=== PATIENT | female | born 1985 | race American Indian/Alaskan Native ===

== ENCOUNTER 2017-07-09 20:48 | Emergency (ER) | payer OTHER ==
[2017-07-09 21:14] VITALS: BP 128/79
--- NOTE | 2017-07-09 21:29 | EDM.PDOC ---
ED HPI GENERAL MEDICAL PROBLEM - General Chief Complaint: Abdominal Pain Stated Complaint: ABDOMINAL PAIN [id number] Time Seen by Provider: 07/09/17 21:30 Source of Information: Reports: Patient History Limitations: Reports: No Limitations - History of Present Illness INITIAL COMMENTS - FREE TEXT/NARRATIVE: ED with c/o mid abdominal pain, started afternoon, worse tonight, Does not radiate. Was told her elevated liver enzymes on recheck were continuing to rise and she would need to get scheduled for ultrasound to check gallbladder. 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: Psychiatric History: Reports: Anxiety Endocrine/Metabolic History: Reports: Obesity/BMI 30+ - Past Surgical History Female Surgical History: Reports: Dilitation & Evacuation Social & Family History - Family History Family Medical History: Noncontributory - Tobacco Use Smoking Status *Q: Never Smoker Second Hand Smoke Exposure: No - Caffeine Use Caffeine Use: Reports: None - Alcohol Use Days Per Week of Alcohol Use: 0 - Recreational Drug Use Recreational Drug Use: No ED ROS GENERAL - Review of Systems Review Of Systems: See Below Constitutional: Reports: No Symptoms HEENT: Reports: No Symptoms Respiratory: Reports: No Symptoms Cardiovascular: Reports: No Symptoms Endocrine: Reports: No Symptoms GI/Abdominal: Reports: Abdominal Pain, Diarrhea, Nausea. Denies: Vomiting Musculoskeletal: Reports: No Symptoms Skin: Reports: No Symptoms Neurological: Reports: No Symptoms ED EXAM, GI/ABD - Physical Exam Exam: See Below Exam Limited By: No Limitations General Appearance: Alert, Mild Distress Eyes: Bilateral: EOMI Ears: Normal External Exam, Normal TMs Nose: Normal Inspection Throat/Mouth: Normal Inspection, Normal Lips Head: Atraumatic, Normocephalic Neck: Normal Inspection, Full Range of Motion Respiratory/Chest: No Respiratory Distress, Lungs Clear, Normal Breath Sounds Cardiovascular: Normal Peripheral Pulses, Regular Rate, Rhythm GI/Abdominal Exam: Soft, Tender (mild tendernes above umbilicus with deep palpation), Abnormal Bowel Sounds (hypoactive). No: Distended, Guarding, Rebound Back Exam: Normal Inspection Extremities: Normal Inspection Neurological: Alert, Oriented, Normal Cognition Skin Exam: Warm, Dry, Intact, Normal Color Course - Vital Signs Last Recorded V/S: Last Vital Signs Temp 98 F 07/09/17 21:06 Pulse 95 07/09/17 21:06 Resp 17 07/09/17 21:06 BP 128/79 07/09/17 21:06 Pulse Ox 100 07/09/17 21:06 - Orders/Labs/Meds Labs: Laboratory Tests 07/09/17 07/09/17 07/09/17 Range/Units 21:40 21:40 21:52 WBC 12.9 H (5.0-10.0) 10^3/uL RBC 4.48 (4.2-5.4) 10^6/uL Hgb 13.3 D (12.0-16.0) g/dL Hct 39.8 (37.0-47.0) % MCV 88.8 D (80-100) fL MCH 29.7 (27.0-34.0) pg MCHC 33.4 (33.0-35.0) g/dL Plt Count 240 (150-450) 10^3/uL Neut % (Auto) 65.6 (42.2-75.2) % Lymph % (Auto) 24.5 (20.5-50.1) % [place] % (Auto) 7.4 (2-8) % Eos % (Auto) 2.3 (1.0-3.0) % Baso % (Auto) 0.2 (0.0-1.0) % Sodium 136 (135-145) mmol/L Potassium 3.5 L (3.6-5.0) mmol/L Chloride 105 (101-111) mmol/L Carbon Dioxide 21.0 (21.0-31.0) mmol/L Anion Gap 13.5 BUN 16 (7-18) mg/dL Creatinine 0.8 (0.6-1.3) mg/dL Est Cr Clr Drug Dosing 77.59 mL/min Estimated GFR (MDRD) > 60 BUN/Creatinine Ratio 20.00 Glucose 95 (74-105) mg/dL Calcium 9.2 (8.4-10.2) mg/dl Total Bilirubin 0.8 (0.2-1.0) mg/dL AST 28 (10-42) IU/L ALT 57 (10-60) IU/L Alkaline Phosphatase 96 (42-121) IU/L Total Protein 7.7 (6.7-8.2) g/dl Albumin 4.2 (3.2-5.5) g/dl Globulin 3.5 Albumin/Globulin Ratio 1.20 Amylase 33 (28-100) U/L Lipase 34 (22-51) U/L Urine Color (YELLOW) Urine Appearance (CLEAR) Urine pH (5.0-9.0) Ur Specific [place] (1.005-1.030) Urine Protein (NEGATIVE) Urine Glucose (UA) (NEGATIVE) Urine Ketones (NEGATIVE) Urine Occult Blood (NEGATIVE) Urine Nitrite (NEGATIVE) Urine Bilirubin (NEGATIVE) Urine Urobilinogen (0.2-1.0) mg/dL Ur Leukocyte Esterase (NEGATIVE) Urine RBC /HPF Urine WBC (0-5/HPF) /HPF Ur Epithelial Cells /HPF Urine Bacteria (0-FEW/HPF) /HPF Urine Mucus /LPF Urine Yeast (0/HPF) /HPF Urine HCG, Qual Negative 07/09/17 Range/Units 21:52 WBC (5.0-10.0) 10^3/uL RBC (4.2-5.4) 10^6/uL Hgb (12.0-16.0) g/dL Hct (37.0-47.0) % MCV (80-100) fL MCH (27.0-34.0) pg MCHC (33.0-35.0) g/dL Plt Count (150-450) 10^3/uL Neut % (Auto) (42.2-75.2) % Lymph % (Auto) (20.5-50.1) % [place] % (Auto) (2-8) % Eos % (Auto) (1.0-3.0) % Baso % (Auto) (0.0-1.0) % Sodium (135-145) mmol/L Potassium (3.6-5.0) mmol/L Chloride (101-111) mmol/L Carbon Dioxide (21.0-31.0) mmol/L Anion Gap BUN (7-18) mg/dL Creatinine (0.6-1.3) mg/dL Est Cr Clr Drug Dosing mL/min Estimated GFR (MDRD) BUN/Creatinine Ratio Glucose (74-105) mg/dL Calcium (8.4-10.2) mg/dl Total Bilirubin (0.2-1.0) mg/dL AST (10-42) IU/L ALT (10-60) IU/L Alkaline Phosphatase (42-121) IU/L Total Protein (6.7-8.2) g/dl Albumin (3.2-5.5) g/dl Globulin Albumin/Globulin Ratio Amylase (28-100) U/L Lipase (22-51) U/L Urine Color Yellow (YELLOW) Urine Appearance Clear (CLEAR) Urine pH 5.5 (5.0-9.0) Ur Specific [place] >= 1.030 (1.005-1.030) Urine Protein Negative (NEGATIVE) Urine Glucose (UA) Negative (NEGATIVE) Urine Ketones Negative (NEGATIVE) Urine Occult Blood Negative (NEGATIVE) Urine Nitrite Negative (NEGATIVE) Urine Bilirubin Negative (NEGATIVE) Urine Urobilinogen 0.2 (0.2-1.0) mg/dL Ur Leukocyte Esterase Negative (NEGATIVE) Urine RBC 0-5 /HPF Urine WBC 0-5 (0-5/HPF) /HPF Ur Epithelial Cells Many H /HPF Urine Bacteria Many H (0-FEW/HPF) /HPF Urine Mucus Moderate H /LPF Urine Yeast Few H (0/HPF) /HPF Urine HCG, Qual Meds: Medications Discontinued Medications Generic Name Dose Route Start Last Admin Trade Name Freq PRN Reason Stop Dose Admin Al Hydroxide/Mg Hydroxide 30 ml 07/09/17 23:02 07/09/17 23:25 Gi Cocktail PO 07/09/17 23:03 30 ml ONETIME ONE Administration Famotidine 20 mg 07/09/17 23:21 07/10/17 00:37 Pepcid IVPUSH 07/09/17 23:22 20 mg ONETIME ONE Administration Famotidine Confirm 07/09/17 23:20 07/09/17 23:25 Pepcid Administered 07/09/17 23:21 Not Given Dose 20 mg .ROUTE .STK-MED ONE Hydromorphone HCl 0.5 mg 07/09/17 23:53 07/10/17 00:36 Dilaudid IVPUSH 07/09/17 23:54 0.5 mg ONETIME ONE Administration Hydromorphone HCl Confirm 07/10/17 00:13 07/10/17 00:36 Dilaudid Administered 07/10/17 00:14 Not Given Dose 1 mg .ROUTE .STK-MED ONE Sodium Chloride 1,000 mls @ 999 mls/hr 07/09/17 22:07 07/09/17 23:20 Normal Saline IV 07/09/17 23:07 999 mls/hr .BOLUS ONE Administration Iopamidol 100 ml 07/09/17 22:06 07/09/17 22:09 Isovue-300 (61%) IVPUSH 07/09/17 22:07 100 ml ONETIME ONE Administration Ondansetron HCl 4 mg 07/09/17 23:54 07/10/17 00:21 Zofran IV 07/09/17 23:55 4 mg ONETIME ONE Administration - Radiology Interpretation Free Text/Narrative:: CT abdomen: Mild fatty liver replacement\ Departure - Departure Time of Disposition: 23:03 Disposition: Home, Self-Care 01 Condition: Good Clinical Impression: Abdominal pain Qualifiers: Abdominal location: epigastric Qualified Code(s): R10.13 - Epigastric pain - Discharge Information Instructions: Abdominal Pain, Adult, [id number] Forms: ED Department Discharge Additional Instructions: light bland diet low acid, no caffeine, no alcohol low fat omeprazole 20mg daily on empty stomach Clinic follow up next week.
[2017-07-09] MEDS ORDERED: Iopamidol 612 MG/ML 100 ML Bottle IVPUSH ONE (22:06)
[2017-07-09] MEDS ORDERED: Sodium Chloride 0.9% 1,000 ML IV ONE (22:07)
[2017-07-09 22:11] LABS: CHLORIDE,CL 105 mmol/L (101-111); SODIUM,NA 136 mmol/L (135-145)
[2017-07-09] MEDS ORDERED: GI Cocktail Oral Solution 30 ML PO ONE (23:02)
[2017-07-09] MEDS ORDERED: Famotidine 20 MG/2 ML SDV ONE (23:20)
[2017-07-09] MEDS: Famotidine 20 MG/2 ML SDV IVPUSH ONE (23:25)
[2017-07-09] MEDS ORDERED: HYDROmorphone 0.5 MG/0.5 ML Syringe IVPUSH ONE (23:53)
[2017-07-09] MEDS ORDERED: Ondansetron 4 MG/2 ML SDV IV ONE (23:54)
[2017-07-10] MEDS ORDERED: HYDROmorphone 1 MG/ML Syringe ONE (00:13)
[2017-07-10] MEDS: Famotidine 20 MG/2 ML SDV IVPUSH ONE (00:37)
== END 2017-07-10 01:08 | disposition home or self-care (01) ==
LOC: DL.ED 20:48
DX: R10.13 Epigastric pain (principal)
CPT/HCPCS: 36415; 74177; 80053; 81001; 81025; 82150; 83690; 85025; 96361; 96374; 96375; 99284; A9270-GY; J1170; J2405; J7030; Q9967; S0028

== ENCOUNTER 2018-08-05 17:25 | Emergency (ER) | payer OTHER ==
[2018-08-05 17:33] VITALS: BP 135/68
--- NOTE | 2018-08-05 18:22 | EDM.PDOC ---
ED HPI GENERAL MEDICAL PROBLEM - General Chief Complaint: ENT Problem Stated Complaint: SINUS INFECTION? Time Seen by Provider: 08/05/18 18:12 Source of Information: Reports: Patient, RN, RN Notes Reviewed History Limitations: Reports: No Limitations - History of Present Illness INITIAL COMMENTS - FREE TEXT/NARRATIVE: Patient presents to ER with complaint of sinus infection. States she has had cough, PND, headache, runny nose, eyes draining and tickle in chest. She has had fever, chills, and shortness of breath at times. She has had no nausea, vomiting, diarrhea or chest pain. Onset: Gradual Duration: Constant Location: Reports: Generalized Quality: Reports: Ache Severity: Moderate Improves with: Reports: None Worsens with: Reports: None Associated Symptoms: Reports: No Other Symptoms - Related Data Allergies Allergy/AdvReac Type Severity Reaction Status Date / Time No Known Allergies Allergy Verified 08/05/18 17:28 Home Meds: Home Meds Pnv95/Iron Fum/Folic Acid [ Caplet] 1 tab PO DAILY 07/02/16 [History] Past Medical History - Past Health History Medical/Surgical History: Denies Medical/Surgical History HEENT History: Reports: Impaired Vision Cardiovascular History: Reports: None Respiratory History: Reports: None Gastrointestinal History: Reports: None Genitourinary History: Reports: None 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: Musculoskeletal History: Reports: None Neurological History: Reports: None Psychiatric History: Reports: Anxiety Endocrine/Metabolic History: Reports: Obesity/BMI 30+ Hematologic History: Reports: None Immunologic History: Reports: None Oncologic (Cancer) History: Reports: None Dermatologic History: Reports: None - Infectious Disease History Infectious Disease History: Reports: None - Past Surgical History Head Surgeries/Procedures: Reports: None Female Surgical History: Reports: Dilitation & Evacuation Social & Family History - Family History Family Medical History: Noncontributory - Tobacco Use Smoking Status *Q: Never Smoker - Caffeine Use Caffeine Use: Reports: Soda - Recreational Drug Use Recreational Drug Use: No ED ROS ENT - Review of Systems Review Of Systems: ROS reveals no pertinent complaints other than HPI. ED EXAM, ENT - Physical Exam Exam: See Below Exam Limited By: No Limitations General Appearance: Alert, WD/WN, No Apparent Distress Eye Exam: Bilateral Eye: EOMI, Normal Inspection, PERRL Ears: Normal External Exam, Normal Canal, Hearing Grossly Normal, Normal TMs Nose: Other (nasal/sinus congestion) Mouth/Throat: Normal Inspection, Normal Gums, Normal Lips, Normal Oropharynx, Normal Teeth Head: Atraumatic, Normocephalic Neck: Normal Inspection, Supple, Non-Tender, Full Range of Motion Respiratory/Chest: No Respiratory Distress, Lungs Clear, Normal Breath Sounds, No Accessory Muscle Use, Chest Non-Tender Cardiovascular: Normal Peripheral Pulses, Regular Rate, Rhythm, No Edema, No Gallop, No JVD, No Murmur, No Rub GI/Abdominal: Normal Bowel Sounds, Soft, Non-Tender, No Organomegaly, No Distention, No Abnormal Bruit, No Mass (Female) Exam: Deferred Rectal (Female) Exam: Deferred Back: Normal Inspection, Full Range of Motion Extremities: Normal Inspection, Normal Range of Motion, Non-Tender, No Pedal Edema, Normal Capillary Refill Neurological: Alert, Oriented, CN II-XII Intact, Normal Cognition, Normal Gait, Normal Reflexes, No Motor/Sensory Deficits Psychiatric: Normal Affect, Normal Mood Skin: Warm, Dry, Intact, Normal Color, No Rash Lymphatic: No Adenopathy Course - Vital Signs Last Recorded V/S: Last Vital Signs Temp 97.1 F 08/05/18 17:32 Pulse 95 08/05/18 17:32 Resp 16 08/05/18 17:32 BP 135/68 08/05/18 17:32 Pulse Ox 99 08/05/18 17:32 Departure - Departure Time of Disposition: 18:20 Disposition: Home, Self-Care 01 Condition: Fair Clinical Impression: Viral upper respiratory infection - Discharge Information *PRESCRIPTION DRUG MONITORING PROGRAM REVIEWED*: No *COPY OF PRESCRIPTION DRUG MONITORING REPORT IN PATIENT THELMA: No Instructions: Cool Mist Vaporizer, Viral Respiratory Infection, [id number], Upper Respiratory Infection, Adult, [id number] Forms: ED Department Discharge Additional Instructions: Try using nasal rinses RX: Flonase and Albuterol inhaler Drink plenty of fluids Continue to use a decongestant May use Tylenol and/or Ibuprofen as directed for pain/fever Follow up with your primary care facility if no improvement
== END 2018-08-05 18:25 | disposition home or self-care (01) ==
LOC: DL.ED 17:25
DX: J06.9 Acute upper respiratory infection, unspecified (principal)
CPT/HCPCS: 99282

== ENCOUNTER 2018-10-09 12:28 | Emergency (ER) | payer OTHER ==
[2018-10-09] MEDS ORDERED: Sodium Chloride 0.9% 10 ML Syringe FLUSH PRN (12:42)
[2018-10-09] MEDS ORDERED: diazePAM 5 MG/ML MDV IVPUSH ONE (12:43)
[2018-10-09] MEDS ORDERED: Dexamethasone 4 MG/ML SDV IVPUSH ONE (12:43)
[2018-10-09] MEDS ORDERED: Meclizine 12.5 MG Tab PO ONE (12:43)
[2018-10-09] MEDS ORDERED: Lactated Ringers 1,000 ML IV ONE (12:44)
[2018-10-09 12:51] VITALS: BP 121/73
[2018-10-09 13:17] LABS: ANION GAP 13.1; CHLORIDE,CL 106 mmol/L (101-111); SODIUM,NA 138 mmol/L (135-145)
--- NOTE | 2018-10-09 13:53 | EDM.PDOC ---
Scribed by Viktoriya Chan 10/09/18 [id number] for Jon Brunson MD ED HPI GENERAL MEDICAL PROBLEM - General Chief Complaint: General Stated Complaint: FEELING SICK, DIZZY, LIGHT HEADED Time Seen by Provider: 10/09/18 12:37 Source of Information: Reports: Patient, RN, RN Notes Reviewed History Limitations: Reports: No Limitations - History of Present Illness INITIAL COMMENTS - FREE TEXT/NARRATIVE: Patient presents to the ER with complaint of "room spin dizziness" associated with nausea. It is worse with head and eye movement. It began last night worse today. She denies vomiting, headache, visual changes. She had cold and congestion a week ago, which is improving. No prior history fo vertigo. Denies syncope or near syncope. Onset Date: 10/08/18 Duration: Recurring Severity: Moderate Improves with: Reports: Immobilization, Rest Worsens with: Reports: Movement Associated Symptoms: Reports: No Other Symptoms - Related Data Allergies Allergy/AdvReac Type Severity Reaction Status Date / Time No Known Allergies Allergy Verified 10/09/18 12:39 Past Medical History - Past Health History Medical/Surgical History: Denies Medical/Surgical History HEENT History: Reports: Impaired Vision Cardiovascular History: Reports: None Respiratory History: Reports: None Gastrointestinal History: Reports: None Genitourinary History: Reports: 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: Musculoskeletal History: Reports: None Neurological History: Reports: None Psychiatric History: Reports: Anxiety Endocrine/Metabolic History: Reports: Obesity/BMI 30+ Hematologic History: Reports: None Immunologic History: Reports: None Oncologic (Cancer) History: Reports: None Dermatologic History: Reports: None - Infectious Disease History Infectious Disease History: Reports: None - Past Surgical History Head Surgeries/Procedures: Reports: None Female Surgical History: Reports: Dilitation & Evacuation Social & Family History - Family History Family Medical History: Noncontributory - Caffeine Use Caffeine Use: Reports: Soda ED ROS GENERAL - Review of Systems Review Of Systems: ROS reveals no pertinent complaints other than HPI. ED EXAM, GENERAL - Physical Exam Exam: See Below Exam Limited By: No Limitations General Appearance: Alert, WD/WN, No Apparent Distress, Obese Eye Exam: Bilateral Eye: EOMI, Nystagmus (Left lateral gaze), PERRL Ears: Normal Canal, Hearing Grossly Normal, Other (Air fluid levels behind B/L TMs, with fullness of Rt TM, no erythema.) Nose: No Blood, Other (Mild mucosal inflammation, no drainage, no erythema) Throat/Mouth: Normal Inspection, Normal Lips, Normal Teeth, Normal Gums, Normal Oropharynx, Normal Voice, No Airway Compromise Head: Atraumatic, Normocephalic Neck: Normal Inspection, Supple, Non-Tender, Full Range of Motion. No: Carotid Bruit, Lymphadenopathy (L), Lymphadenopathy (R) Respiratory/Chest: No Respiratory Distress, Lungs Clear, Normal Breath Sounds, No Accessory Muscle Use, Chest Non-Tender Cardiovascular: Regular Rate, Rhythm GI/Abdominal: Normal Bowel Sounds, Soft, Non-Tender, Other (Benign obese abdomen ) Back Exam: Normal Inspection Extremities: Normal Inspection, Normal Range of Motion, Non-Tender, Normal Capillary Refill, No Pedal Edema Neurological: Alert, Oriented, CN II-XII Intact, Normal Cognition, Normal Gait, No Motor/Sensory Deficits, Other (Vertigo reproducible with head and eye movement.) Psychiatric: Normal Affect, Normal Mood Skin Exam: Warm, Dry, Intact, Normal Color, No Rash Course - Vital Signs Last Recorded V/S: Last Vital Signs Temp 35.4 C 10/09/18 12:39 Pulse 69 10/09/18 12:39 Resp 16 10/09/18 12:39 BP 121/73 10/09/18 12:39 Pulse Ox 100 10/09/18 12:39 - Orders/Labs/Meds Orders: Active Orders 24 hr Category Date Time Status Peripheral IV Care [RC] . DIRECTED Care 10/09/18 12:42 Active Sodium Chloride 0.9% [Saline Flush] Med 10/09/18 12:42 Active 10 ml FLUSH ASDIRECTED PRN Peripheral IV Insertion Adult [OM.PC] Stat Oth 10/09/18 12:42 Ordered Medication Orders Sodium Chloride (Saline Flush) 10 ml FLUSH ASDIRECTED PRN PRN Reason: Keep Vein Open Last Admin: 10/09/18 13:03 Dose: 10 ml Labs: Laboratory Tests 10/09/18 10/09/18 10/09/18 Range/Units 12:42 12:42 12:46 WBC 8.3 (5.0-10.0) 10^3/uL RBC 4.49 (4.2-5.4) 10^6/uL Hgb 13.7 (12.0-16.0) g/dL Hct 40.4 (37.0-47.0) % MCV 90.0 (80-100) fL MCH 30.5 (27.0-34.0) pg MCHC 33.9 (33.0-35.0) g/dL Plt Count 244 (150-450) 10^3/uL Neut % (Auto) 62.6 (42.2-75.2) % Lymph % (Auto) 26.4 (20.5-50.1) % [place] % (Auto) 8.4 H (2-8) % Eos % (Auto) 2.4 (1.0-3.0) % Baso % (Auto) 0.2 (0.0-1.0) % Sodium (135-145) mmol/L Potassium (3.6-5.0) mmol/L Chloride (101-111) mmol/L Carbon Dioxide (21.0-31.0) mmol/L Anion Gap BUN (7-18) mg/dL Creatinine (0.6-1.3) mg/dL Est Cr Clr Drug Dosing mL/min Estimated GFR (MDRD) BUN/Creatinine Ratio Glucose (74-105) mg/dL Calcium (8.4-10.2) mg/dl Magnesium (1.8-2.5) mg/dL Total Bilirubin (0.2-1.0) mg/dL AST (10-42) IU/L ALT (10-60) IU/L Alkaline Phosphatase (42-121) IU/L C-Reactive Protein (0.0-1.3) mg/dL Total Protein (6.7-8.2) g/dl Albumin (3.2-5.5) g/dl Globulin Albumin/Globulin Ratio Urine Color Yellow (YELLOW) Urine Appearance Slightly cloudy (CLEAR) Urine pH 6.0 (5.0-9.0) Ur Specific [place] 1.025 (1.005-1.030) Urine Protein Trace H (NEGATIVE) Urine Glucose (UA) Negative (NEGATIVE) Urine Ketones Negative (NEGATIVE) Urine Occult Blood Negative (NEGATIVE) Urine Nitrite Negative (NEGATIVE) Urine Bilirubin Negative (NEGATIVE) Urine Urobilinogen 0.2 (0.2-1.0) mg/dL Ur Leukocyte Esterase Negative (NEGATIVE) Urine RBC 0-5 /HPF Urine WBC 0-5 (0-5/HPF) /HPF Ur Epithelial Cells Few /HPF Urine Bacteria Few (0-FEW/HPF) /HPF Urine Mucus Occasional /LPF Urine HCG, Qual Negative 10/09/18 10/09/18 Range/Units 12:46 12:46 WBC (5.0-10.0) 10^3/uL RBC (4.2-5.4) 10^6/uL Hgb (12.0-16.0) g/dL Hct (37.0-47.0) % MCV (80-100) fL MCH (27.0-34.0) pg MCHC (33.0-35.0) g/dL Plt Count (150-450) 10^3/uL Neut % (Auto) (42.2-75.2) % Lymph % (Auto) (20.5-50.1) % [place] % (Auto) (2-8) % Eos % (Auto) (1.0-3.0) % Baso % (Auto) (0.0-1.0) % Sodium 138 (135-145) mmol/L Potassium 4.1 (3.6-5.0) mmol/L Chloride 106 (101-111) mmol/L Carbon Dioxide 23.0 (21.0-31.0) mmol/L Anion Gap 13.1 BUN 16 (7-18) mg/dL Creatinine 0.6 (0.6-1.3) mg/dL Est Cr Clr Drug Dosing 116.24 mL/min Estimated GFR (MDRD) > 60 BUN/Creatinine Ratio 26.66 Glucose 100 (74-105) mg/dL Calcium 8.8 (8.4-10.2) mg/dl Magnesium 1.9 (1.8-2.5) mg/dL Total Bilirubin 0.7 (0.2-1.0) mg/dL AST 25 (10-42) IU/L ALT 39 (10-60) IU/L Alkaline Phosphatase 93 (42-121) IU/L C-Reactive Protein 0.8 (0.0-1.3) mg/dL Total Protein 7.3 (6.7-8.2) g/dl Albumin 3.9 (3.2-5.5) g/dl Globulin 3.4 Albumin/Globulin Ratio 1.15 Urine Color (YELLOW) Urine Appearance (CLEAR) Urine pH (5.0-9.0) Ur Specific [place] (1.005-1.030) Urine Protein (NEGATIVE) Urine Glucose (UA) (NEGATIVE) Urine Ketones (NEGATIVE) Urine Occult Blood (NEGATIVE) Urine Nitrite (NEGATIVE) Urine Bilirubin (NEGATIVE) Urine Urobilinogen (0.2-1.0) mg/dL Ur Leukocyte Esterase (NEGATIVE) Urine RBC /HPF Urine WBC (0-5/HPF) /HPF Ur Epithelial Cells /HPF Urine Bacteria (0-FEW/HPF) /HPF Urine Mucus /LPF Urine HCG, Qual Meds: Medications Generic Name Dose Route Start Last Admin Trade Name Freq PRN Reason Stop Dose Admin Sodium Chloride 10 ml 10/09/18 12:42 10/09/18 13:03 Saline Flush FLUSH 10 ml ASDIRECTED PRN Administration Keep Vein Open Discontinued Medications Generic Name Dose Route Start Last Admin Trade Name Freq PRN Reason Stop Dose Admin Dexamethasone 20 mg 10/09/18 12:43 10/09/18 13:03 Dexamethasone IVPUSH 10/09/18 12:44 20 mg ONETIME ONE Administration Diazepam 5 mg 10/09/18 12:43 10/09/18 13:03 Valium IVPUSH 10/09/18 12:44 5 mg ONETIME ONE Administration Lactated Ringer's 1,000 mls @ 999 mls/hr 10/09/18 12:44 10/09/18 13:03 Ringers, Lactated IV 10/09/18 13:44 999 mls/hr .BOLUS ONE Administration Meclizine HCl 25 mg 10/09/18 12:43 10/09/18 13:03 Antivert PO 10/09/18 12:44 25 mg ONETIME ONE Administration - Re-Assessments/Exams Free Text/Narrative Re-Assessment/Exam: 10/09/18 13:51 Pt feels improved following tx in the ER. Departure - Departure Time of Disposition: 13:52 Disposition: Home, Self-Care 01 Condition: Good Clinical Impression: Vertigo - Discharge Information *PRESCRIPTION DRUG MONITORING PROGRAM REVIEWED*: No *COPY OF PRESCRIPTION DRUG MONITORING REPORT IN PATIENT THELMA: No Instructions: Vertigo Forms: ED Department Discharge Additional Instructions: Rx: Meclizine 25mg Rx: Decadron 4mg No driving until dizziness has resolved for at least 24 hours. Follow up in clinic if not improved in 2 to 3 days. - My Orders Last 24 Hours: My Active Orders 10/09/18 12:42 Peripheral IV Care [RC] . DIRECTED Sodium Chloride 0.9% [Saline Flush] 10 ml FLUSH ASDIRECTED PRN Peripheral IV Insertion Adult [OM.PC] Stat - Assessment/Plan Last 24 Hours: My Active Orders 10/09/18 12:42 Peripheral IV Care [RC] . DIRECTED Sodium Chloride 0.9% [Saline Flush] 10 ml FLUSH ASDIRECTED PRN Peripheral IV Insertion Adult [OM.PC] Stat I have read and agree with the documentation that has been completed regarding this visit. By signing this record, I attest that the documentation was completed in my physical presence and is an accurate record of the encounter.
== END 2018-10-09 14:10 | disposition home or self-care (01) ==
LOC: DL.ED 12:28
DX: R42 Dizziness and giddiness (principal); R11.0 Nausea
CPT/HCPCS: 36415; 80053; 81001; 81025; 83735; 85025; 86140; 96361; 96374; 96375; 99283; A9270; J1100; J3360; J7120

== ENCOUNTER 2020-04-27 14:19 | Emergency (ER) | payer MEDICAID, OTHER ==
[2020-04-27 14:35] VITALS: BP 126/73; PULSE 96
--- NOTE | 2020-04-27 14:48 | EDM.PDOC ---
ED HPI GENERAL MEDICAL PROBLEM - General Chief Complaint: Genitourinary Problem Stated Complaint: POSSIBLE UTI Time Seen by Provider: 04/27/20 14:40 Source of Information: Reports: Patient History Limitations: Reports: No Limitations - History of Present Illness INITIAL COMMENTS - FREE TEXT/NARRATIVE: Patient is here for a possible UTI. She started to feel a little under the wea ther yesterday, but today, around 0400, she woke up with lower abdominal pain/cramping. She also noted increased urinary urgency and frequency. She has some nausea and low back pain. She cannot recall having a UTI in the past. She has an IUD in place. No known fevers or chills. Otherwise feeling well. Lower Abdominal Pain Score (Numeric/FACES): 5 - Related Data Allergies Allergy/AdvReac Type Severity Reaction Status Date / Time No Known Allergies Allergy Verified 04/27/20 14:35 Home Meds: Home Meds Fluconazole [Diflucan] 150 mg PO WEEKLY 04/27/20 [History] Past Medical History - Past Health History Medical/Surgical History: Denies Medical/Surgical History HEENT History: Reports: Impaired Vision Cardiovascular History: Reports: None Respiratory History: Reports: None Gastrointestinal History: Reports: None Genitourinary History: Reports: None SAFETY SPECIALIST History: Reports: Musculoskeletal History: Reports: None Neurological History: Reports: None Psychiatric History: Reports: Anxiety Endocrine/Metabolic History: Reports: Obesity/BMI 30+ Hematologic History: Reports: None Immunologic History: Reports: None Oncologic (Cancer) History: Reports: None Dermatologic History: Reports: None - Infectious Disease History Infectious Disease History: Reports: None - Past Surgical History Head Surgeries/Procedures: Reports: None Female Surgical History: Reports: Dilitation & Evacuation Social & Family History - Family History Family Medical History: No Pertinent Family History - Tobacco Use Tobacco Use Status *Q: Never Tobacco User Second Hand Smoke Exposure: No - Caffeine Use Caffeine Use: Reports: Coffee, Soda - Recreational Drug Use Recreational Drug Use: No ED ROS GENERAL - Review of Systems Review Of Systems: Comprehensive ROS is negative, except as noted in HPI. ED EXAM, RENAL/ - Physical Exam Exam: See Below Exam Limited By: No Limitations General Appearance: Alert, WD/WN, No Apparent Distress Eye Exam: Bilateral Eye: Normal Inspection Ears: Normal External Exam Head: Atraumatic, Normocephalic Neck: Normal Inspection, Supple, Non-Tender Respiratory/Chest: No Respiratory Distress, Lungs Clear, Normal Breath Sounds, No Accessory Muscle Use, Chest Non-Tender Cardiovascular: Normal Peripheral Pulses, Regular Rate, Rhythm, No Edema, No Murmur GI/Abdominal: Soft, No Distention, Tender (suprapubic). No: Guarding, Rebound (Female) Exam: Deferred Rectal (Female) Exam: Deferred Back Exam: Normal Inspection, Full Range of Motion. No: CVA Tenderness (L), CVA Tenderness (R) Extremities: Normal Inspection, Normal Range of Motion Neurological: Alert, Oriented, Normal Cognition, No Motor/Sensory Deficits Psychiatric: Normal Affect, Normal Mood Skin Exam: Warm, Dry, Intact, Normal Color, No Rash Lymphatic: No Adenopathy Course - Vital Signs Last Recorded V/S: Last Vital Signs Temp 97.2 F 04/27/20 14:25 Pulse 96 04/27/20 14:25 Resp 16 04/27/20 14:25 BP 126/73 04/27/20 14:25 Pulse Ox 99 04/27/20 14:25 - Orders/Labs/Meds Labs: Laboratory Tests 04/27/20 04/27/20 04/27/20 Range/Units 14:23 14:23 15:18 WBC 11.0 H (5.0-10.0) 10^3/uL RBC 4.28 (4.2-5.4) 10^6/uL Hgb 13.5 (12.0-16.0) g/dL Hct 38.9 (37.0-47.0) % MCV 90.9 (80-100) fL MCH 31.5 (27.0-34.0) pg MCHC 34.7 (33.0-35.0) g/dL Plt Count 277 (150-450) 10^3/uL Neut % (Auto) 66.2 (42.2-75.2) % Lymph % (Auto) 23.3 (20.5-50.1) % [place] % (Auto) 7.6 (2-8) % Eos % (Auto) 2.5 (1.0-3.0) % Baso % (Auto) 0.4 (0.0-1.0) % Sodium (136-145) mmol/L Potassium (3.5-5.1) mmol/L Chloride (98-107) mmol/L Carbon Dioxide (21-32) mmol/L Anion Gap (7-13) mEq/L BUN (7-18) mg/dL Creatinine (0.55-1.02) mg/dL Est Cr Clr Drug Dosing mL/min Estimated GFR (MDRD) BUN/Creatinine Ratio (No establ ref range) Glucose (74-99) mg/dL Calcium (8.5-10.1) mg/dL Total Bilirubin (0.2-1.0) mg/dL AST (15-37) U/L ALT (14-59) U/L Alkaline Phosphatase (46-116) U/L Total Protein (6.4-8.2) g/dL Albumin (3.4-5.0) g/dL Globulin Albumin/Globulin Ratio Urine Color Yellow (YELLOW) Urine Appearance Clear (CLEAR) Urine pH 5.5 (5.0-9.0) Ur Specific [place] >= 1.030 (1.005-1.030) Urine Protein Negative (NEGATIVE) Urine Glucose (UA) Negative (NEGATIVE) Urine Ketones Negative (NEGATIVE) Urine Occult Blood Negative (NEGATIVE) Urine Nitrite Negative (NEGATIVE) Urine Bilirubin Negative (NEGATIVE) Urine Urobilinogen 0.2 (0.2-1.0) mg/dL Ur Leukocyte Esterase Negative (NEGATIVE) Urine HCG, Qual Negative 04/27/20 Range/Units 15:18 WBC (5.0-10.0) 10^3/uL RBC (4.2-5.4) 10^6/uL Hgb (12.0-16.0) g/dL Hct (37.0-47.0) % MCV (80-100) fL MCH (27.0-34.0) pg MCHC (33.0-35.0) g/dL Plt Count (150-450) 10^3/uL Neut % (Auto) (42.2-75.2) % Lymph % (Auto) (20.5-50.1) % [place] % (Auto) (2-8) % Eos % (Auto) (1.0-3.0) % Baso % (Auto) (0.0-1.0) % Sodium 140 (136-145) mmol/L Potassium 4.0 (3.5-5.1) mmol/L Chloride 104 (98-107) mmol/L Carbon Dioxide 27 (21-32) mmol/L Anion Gap 13.0 (7-13) mEq/L BUN 15 (7-18) mg/dL Creatinine 0.90 (0.55-1.02) mg/dL Est Cr Clr Drug Dosing 68.70 mL/min Estimated GFR (MDRD) > 60 BUN/Creatinine Ratio 16.7 (No establ ref range) Glucose 92 (74-99) mg/dL Calcium 8.9 (8.5-10.1) mg/dL Total Bilirubin 0.5 (0.2-1.0) mg/dL AST 33 (15-37) U/L ALT 81 H (14-59) U/L Alkaline Phosphatase 120 H (46-116) U/L Total Protein 7.3 (6.4-8.2) g/dL Albumin 3.5 (3.4-5.0) g/dL Globulin 3.8 Albumin/Globulin Ratio 0.9 Urine Color (YELLOW) Urine Appearance (CLEAR) Urine pH (5.0-9.0) Ur Specific [place] (1.005-1.030) Urine Protein (NEGATIVE) Urine Glucose (UA) (NEGATIVE) Urine Ketones (NEGATIVE) Urine Occult Blood (NEGATIVE) Urine Nitrite (NEGATIVE) Urine Bilirubin (NEGATIVE) Urine Urobilinogen (0.2-1.0) mg/dL Ur Leukocyte Esterase (NEGATIVE) Urine HCG, Qual Meds: Medications Discontinued Medications Generic Name Dose Route Start Last Admin Trade Name Freq PRN Reason Stop Dose Admin Oxybutynin Chloride 5 mg 04/27/20 16:09 Oxybutynin Er PO 04/27/20 16:10 ONETIME ONE Departure - Departure Time of Disposition: 16:01 Disposition: Home, Self-Care 01 Condition: Good Clinical Impression: Bladder spasms - Discharge Information Forms: ED Department Discharge Additional Instructions: Hyoscyamine 0.125 mg tab every 4 hours as needed for spasms. Call/return if symptoms worsen, change or fever develops Follow up with primary care physician early next week Sepsis Event Note (ED) - Evaluation Sepsis Screening Result: No Definite Risk - Focused Exam Vital Signs: Vital Signs Temp Pulse Resp BP Pulse Ox 04/27/20 14:25 97.2 F 96 16 126/73 99
[2020-04-27 15:43] LABS: CHLORIDE,CL 104 mmol/L (98-107); SODIUM,NA 140 mmol/L (136-145)
[2020-04-27] MEDS ORDERED: Oxybutynin 5 MG Tab.ER PO ONE (16:09)
== END 2020-04-27 16:30 | disposition home or self-care (01) ==
LOC: DL.ED 14:19
DX: N32.89 Other specified disorders of bladder (principal); E66.9 Obesity, unspecified; Z68.42 Body mass index [BMI] 45.0-49.9, adult
CPT/HCPCS: 36415; 80053; 81003; 81025; 85025; 99284; A9270

== ENCOUNTER 2022-05-22 13:33 | Emergency (ER) | payer MEDICAID, OTHER ==
[2022-05-22] MEDS ORDERED: Lidocaine 2% Jelly 10 ML Urojet MUCMEM ONE ×2 (13:52→17:09)
[2022-05-22 16:07] VITALS: BP 93/37; PULSE 98
== END 2022-05-22 19:25 | disposition home or self-care (01) ==
LOC: DL.ED 13:33
DX: K56.41 Fecal impaction (principal); E66.9 Obesity, unspecified; Z68.41 Body mass index [BMI] 40.0-44.9, adult; Z79.899 Other long term (current) drug therapy; Z86.16 Personal history of COVID-19
CPT/HCPCS: 99283

== ENCOUNTER 2022-06-28 09:49 | Emergency (ER) | payer OTHER, MEDICAID ==
[2022-06-28] MEDS ORDERED: Iopamidol 612 MG/ML 100 ML Bottle IVPUSH ONE (11:21)
[2022-06-28] MEDS ORDERED: Acetaminophen 500 MG Tab PO ONE (11:26)
[2022-06-28] MEDS ORDERED: Omeprazole 20 MG Cap.CR PO ONE (12:31)
[2022-06-28 12:43] VITALS: BP 111/49; PULSE 76
== END 2022-06-28 12:40 | disposition home or self-care (01) ==
LOC: DL.ED 09:49
DX: K76.0 Fatty (change of) liver, not elsewhere classified (principal); M54.6 Pain in thoracic spine; E66.9 Obesity, unspecified; Z68.41 Body mass index [BMI] 40.0-44.9, adult
CPT/HCPCS: 36415; 74177; 80053; 81003; 82150; 83690; 85025; 86140; 99284; A9270; Q9967

== ENCOUNTER 2024-09-04 07:44 | Inpatient (IN) | payer OTHER ==
[2024-09-04] MEDS ORDERED: Carboprost Tromethamine 250 MCG/1 ML Amp IM PRN ×3 (07:57→16:26)
[2024-09-04] MEDS ORDERED: Sodium Chloride 0.9% 10 ML Syringe FLUSH PRN ×2 (07:57→15:09)
[2024-09-04] MEDS ORDERED: Tranexamic Acid 1,000 MG in Sodium Chloride 0.9% 100 ML IV PRN ×3 (07:57→16:26)
[2024-09-04] MEDS ORDERED: Ondansetron 4 MG/2 ML SDV IVPUSH PRN ×2 (07:57→16:26)
[2024-09-04] MEDS ORDERED: fentaNYL 100 MCG/2 ML SDV IVPUSH PRN (07:57)
[2024-09-04] MEDS ORDERED: Methylergonovine 0.2 MG/1 ML Amp IM PRN ×2 (07:57→16:26)
[2024-09-04] MEDS ORDERED: Nalbuphine HCl 10 MG/ 1ML Amp IM PRN (07:57)
[2024-09-04] MEDS ORDERED: Acetaminophen 325 MG Tab PO PRN (07:57)
[2024-09-04] MEDS ORDERED: Oxytocin/Lactated Ringers 30 UNIT/500 ML BAG IV SCH ×2 (08:00→15:15)
[2024-09-04] MEDS ORDERED: Misoprostol 25 MCG (1/4 of 100 MCG) Tab PO SCH (08:00)
[2024-09-04 08:31] LABS: HEMATOCRIT 31.1 % (37.0-47.0); HEMOGLOBIN 9.8 g/dL (12.0-16.0); MEAN CORPUSCULAR HEMOGLOBIN 28.4 pg (27.0-34.0); MEAN CORPUSCULAR HGB CONC 31.5 g/dL (33.0-35.0); MEAN CORPUSCULAR VOLUME 90.1 fL (80-100); RED BLOOD CELL COUNT 3.45 10^6/uL (4.2-5.4); WHITE BLOOD CELL COUNT,WBC 6.9 10^3/uL (5.0-10.0)
[2024-09-04] MEDS: Misoprostol 50 MCG (1/2 of 100 MCG) Tab PO SCH (09:05)
[2024-09-04] MEDS: Lactated Ringers 1,000 ML IV ONE (10:30)
[2024-09-04] MEDS: Lactated Ringers 1,000 ML IV SCH (13:34)
[2024-09-04] MEDS ORDERED: ePHEDrine 50 MG/ML SDV IVPUSH PRN ×2 (14:13→16:26)
[2024-09-04] MEDS ORDERED: Phenylephrine HCl In 0.9% NaCl 1 MG/10 ML Syringe IVPUSH PRN (14:13)
[2024-09-04] MEDS ORDERED: Ropivacaine 200 MG in Premix Bag 1 BAG EPIDUR SCH (14:15)
[2024-09-04] MEDS ORDERED: ePHEDrine 50 MG/ML SDV ONE ×2 (14:16→16:53)
[2024-09-04] MEDS ORDERED: Methylergonovine 0.2 MG Tab PO PRN (15:09)
[2024-09-04] MEDS ORDERED: Oxytocin 10 Units/1 ML SDV IM PRN (15:09)
[2024-09-04] MEDS ORDERED: Famotidine 20 MG/2 ML SDV ONE (15:12)
[2024-09-04] MEDS ORDERED: ceFAZolin 2 GM Vial ONE (15:12)
[2024-09-04] MEDS ORDERED: Lidocaine 2% with EPINEPHrine 1:200,000 20 ML SDV ONE ×2 (15:12→16:53)
[2024-09-04] MEDS ORDERED: Lactated Ringers 1,000 ML IV SCH ×3 (15:15→16:30)
[2024-09-04] MEDS ORDERED: Ketorolac 30 MG/ML SDV IVPUSH SCH (16:00)
[2024-09-04] MEDS ORDERED: Misoprostol 100 MCG Tab RECTAL PRN (16:26)
[2024-09-04] MEDS ORDERED: Naloxone 2 MG/2 ML Syringe IVPUSH PRN (16:26)
[2024-09-04] MEDS ORDERED: Measles, Mumps & Rubella Vaccine 0.5 ML SDV SUBCUT ONE (16:26)
[2024-09-04] MEDS ORDERED: diphenhydrAMINE 50 MG/ML SDV IVPUSH PRN (16:26)
[2024-09-04] MEDS ORDERED: Acetaminophen/oxyCODONE 325-5 MG Tab PO PRN (16:26)
[2024-09-04] MEDS: Oxytocin/Normal Saline 30 UNIT/500 ML BAG IV SCH (16:45)
[2024-09-04] MEDS ORDERED: Ondansetron 4 MG/2 ML SDV ONE (16:53)
[2024-09-04] MEDS ORDERED: Phenylephrine 1% 10 MG/ML SDV ONE (16:53)
[2024-09-04] MEDS ORDERED: Water For Injection, Sterile 10 ML ONE (16:54)
[2024-09-04] MEDS ORDERED: Sodium Chloride 0.9% 100 ML ONE (16:54)
[2024-09-04] MEDS: ceFAZolin 2 GM Vial IVPUSH ONE (18:53)
[2024-09-04] MEDS: Lidocaine 1% 30 ML SDV INJECT ONE (18:53)
[2024-09-04] MEDS: Simethicone 80 MG Tab.Chew PO SCH (19:01)
[2024-09-04] MEDS: Acetaminophen 325 MG Tab PO PRN (19:52)
[2024-09-04] MEDS: Ketorolac 30 MG/ML SDV IVPUSH SCH (21:38)
[2024-09-04] MEDS: Docusate Sodium 100 MG Cap PO PRN (21:41)
[2024-09-04] MEDS: Sodium Chloride 0.9% 10 ML Syringe FLUSH SCH (23:53)
[2024-09-05 06:31] LABS: HEMATOCRIT 28.4 % (37.0-47.0); HEMOGLOBIN 8.7 g/dL (12.0-16.0); MEAN CORPUSCULAR HEMOGLOBIN 28.1 pg (27.0-34.0); MEAN CORPUSCULAR HGB CONC 30.6 g/dL (33.0-35.0); MEAN CORPUSCULAR VOLUME 91.6 fL (80-100); RED BLOOD CELL COUNT 3.1 10^6/uL (4.2-5.4); WHITE BLOOD CELL COUNT,WBC 6.7 10^3/uL (5.0-10.0)
[2024-09-05] MEDS: Acetaminophen/oxyCODONE 325-5 MG Tab PO PRN (08:54)
[2024-09-05] MEDS: Ferrous Sulfate 325 MG Tab PO SCH (08:54)
[2024-09-05] MEDS: Prenatal Multivitamin with Calcium/Folic Acid/Iron Tab PO SCH (10:23)
[2024-09-05] MEDS ORDERED: Ibuprofen 800 MG Tab PO SCH (12:00)
[2024-09-06 08:27] VITALS: BP 114/64; PULSE 69
== END 2024-09-06 10:30 | disposition home or self-care (01) | DRG 788 ==
LOC: DL.OB 07:44 → OBSVTOIN 15:39
PROVIDERS: ADMIT Family Medicine; ATTEND Family Medicine
PROC: 3E0234Z Introduction of Serum, Toxoid and Vaccine into Muscle, Percutaneous Approach (ICD-10-PCS; principal; 2024-09-04 15:30)
PROC: 10D00Z1 Extraction of Products of Conception, Low, Open Approach (ICD-10-PCS; principal; 2024-09-04 15:30)
PROC: 3E0DXGC Introduction of Other Therapeutic Substance into Mouth and Pharynx, External Approach (ICD-10-PCS; principal; 2024-09-04 15:30)
DX: O99.02 Anemia complicating childbirth (principal); O99.214 Obesity complicating childbirth; Z37.0 Single live birth; Z3A.39 39 weeks gestation of pregnancy; Z23 Encounter for immunization; Z86.16 Personal history of COVID-19; Z98.890 Other specified postprocedural states; Z79.899 Other long term (current) drug therapy
CPT/HCPCS: 36415; 51702; 59409; 85027; 86850; 86900; 86901; 94010; A9270-GY; J1885; J2590; J7120